=== PATIENT | male | born 1950 | race Caucasian/White ===

== ENCOUNTER → 2018-08-13 | Day surgery (SDC) | payer MEDICARE, BC ==
[~2018-08-13] MED LIST: Propofol 200 MG/20 ML SDV IV ONE
[2018-08-13] MEDS: Lactated Ringers 1,000 ML IV SCH (09:24)
[2018-08-13 11:12] VITALS: BP 125/66
--- NOTE | 2018-08-13 14:34 | OR ---
DATE OF OPERATION: 08/13/2018 PREOPERATIVE DIAGNOSIS: FAMILY HISTORY OF COLON CANCER. POSTOPERATIVE DIAGNOSIS: FAMILY HISTORY OF COLON CANCER. SURGEON: Juni Rodgers MD PROCEDURE: FULL-LENGTH COLONOSCOPY. ANESTHESIA: MAC via CONCRETE ANALYST. COMPLICATIONS: None. SPECIMEN: None. FINDINGS: 1. Full-length colonoscopy. 2. Argueta diverticulosis, mild. RECOMMENDATIONS: Followup colonoscopy in 5 years. INDICATIONS: The patient has a family history of colon cancer. It has been 5 years since his last colonoscopy. Did have one small polyp removed at his last scope. DESCRIPTION OF PROCEDURE: The patient was prepped and draped, placed in the left lateral decubitus position. A lubricated Olympus colonoscope was inserted and easily advanced to the cecum. Direct visualization of the ileocecal valve and appendiceal orifice was accomplished. The bowel prep was adequate. Upon withdrawal of the scope, throughout the entire length of the colon, I could find no signs of any polyps, mass, ulceration, or bleeding sites. No vascular abnormalities or signs of colitis. The patient did have argueta diverticular disease. A few scattered tics in the right colon, but mostly present in the sigmoid, mild in severity. The rectal vault was benign. Retroflexion showed no perianal disease. Air was suctioned, scope removed without complication. GÉNESIS/CLAU /[id number]
== END ==
LOC: CC.SDS 09:04
PROVIDERS: ATTEND Family Medicine
DX: Z12.11 Encounter for screening for malignant neoplasm of colon (principal); K57.30 Diverticulosis of large intestine without perforation or abscess without bleeding; K21.9 Gastro-esophageal reflux disease without esophagitis; I10 Essential (primary) hypertension; E55.9 Vitamin D deficiency, unspecified; E78.5 Hyperlipidemia, unspecified; N40.0 Benign prostatic hyperplasia without lower urinary tract symptoms; M19.90 Unspecified osteoarthritis, unspecified site; Z88.0 Allergy status to penicillin; Z88.1 Allergy status to other antibiotic agents; Z86.010 Personal history of colon polyps; Z80.0 Family history of malignant neoplasm of digestive organs; Z79.899 Other long term (current) drug therapy
CPT/HCPCS: 00812; G0105; J2704; J7120

== ENCOUNTER 2020-05-26 17:52 | Emergency (ER) | payer MEDICARE, BC ==
[2020-05-26] MEDS ORDERED: Alum Hydrox/Mag Hydrox/Simeth 30 ML, Lidocaine 2% 15 ML PO ONE ×4 (18:00→18:03)
--- NOTE | 2020-05-26 18:26 | EDM.PDOC ---
ED HPI GENERAL MEDICAL PROBLEM - General Chief Complaint: General Stated Complaint: gastric reflux, increased BP Time Seen by Provider: 05/26/20 18:10 Source of Information: Reports: Patient History Limitations: Reports: No Limitations - History of Present Illness INITIAL COMMENTS - FREE TEXT/NARRATIVE: Jorge is a 70 year old male who presents to ER with complaints of burning in his chest "like a match on fire". He states the burning then spreads up his chest and down his abdomen. "then gets very anxious". Does have a history of reflux, is currently taking Protonix and Carafate. Had palmer and honey mustard on Thursday and has been suffering since. States today was worse and was worried as his chest was tight. No shortness of breath. No cough, upper respiratory sy mptoms right now. No nausea or vomiting, no abdominal pain "just burning and excess gas". Patient is well known to me, has this concern quite frequently. Onset: Gradual Duration: Day(s):, Getting Worse Location: Reports: Chest, Abdomen Quality: Reports: Ache, Burning Severity: Moderate Associated Symptoms: Denies: Confusion, Chest Pain, Cough, Fever/Chills, Headaches, Loss of Appetite, Nausea/Vomiting, Shortness of Breath Upper Abdomen Pain Score (Numeric/FACES): 4 - Related Data Allergies Allergy/AdvReac Type Severity Reaction Status Date / Time cefuroxime Allergy Cannot Verified 05/26/20 17:54 Remember ciprofloxacin [From Cipro] Allergy Itching Verified 05/26/20 17:54 Penicillins Allergy Seizure Verified 05/26/20 17:54 Home Meds: Home Meds Atenolol/Chlorthalidone [Tenoretic 50] 0.5 each PO DAILY 06/08/13 [History] Calcium Carbonate [Calcium] 600 mg PO DAILY 06/08/13 [History] Cholecalciferol (Vitamin D3) [Vitamin D3] 5,000 unit PO DAILY 06/08/13 [History] Enalapril [Vasotec] 10 mg PO DAILY 06/08/13 [History] Folic Acid 0.8 mg PO DAILY 06/08/13 [History] Potassium Chloride 10 meq PO BID 06/08/13 [History] polyethylene glycoL 3350 [MiraLAX] 17 gm PO DAILY PRN 06/08/13 [History] Magnesium 400 mg PO DAILY 05/08/19 [History] Past Medical History Cardiovascular History: Reports: Hypertension Gastrointestinal History: Reports: GERD - Past Surgical History GI Surgical History: Reports: Cholecystectomy, Juan Fundoplication Social & Family History - Family History Family Medical History: No Pertinent Family History - Tobacco Use Tobacco Use Status *Q: Never Tobacco User Second Hand Smoke Exposure: No - Caffeine Use Caffeine Use: Reports: None - Recreational Drug Use Recreational Drug Use: No ED ROS GENERAL - Review of Systems Review Of Systems: See Below Constitutional: Denies: Fever, Chills, Malaise, Weakness, Fatigue, Decreased Appetite HEENT: Denies: Ear Pain, Sinus Problem, Throat Pain Respiratory: Denies: Shortness of Breath, Cough Cardiovascular: Denies: Chest Pain, Edema, Lightheadedness Endocrine: Denies: Fatigue GI/Abdominal: Reports: Abdominal Pain, Nausea. Denies: Constipation, Diarrhea, Vomiting : Reports: No Symptoms Musculoskeletal: Reports: No Symptoms Skin: Reports: No Symptoms Neurological: Reports: No Symptoms ED EXAM, GENERAL - Physical Exam Exam: See Below Exam Limited By: No Limitations General Appearance: Alert, WD/WN, No Apparent Distress Ears: Normal External Exam, Normal TMs Nose: Normal Inspection, Normal Mucosa, No Blood Throat/Mouth: Normal Inspection, Normal Oropharynx Head: Normocephalic Neck: Normal Inspection, Supple, Non-Tender Respiratory/Chest: No Respiratory Distress, Lungs Clear, Normal Breath Sounds Cardiovascular: Regular Rate, Rhythm GI/Abdominal: Normal Bowel Sounds, Soft, Non-Tender Extremities: Normal Inspection, No Pedal Edema Skin Exam: Warm, Dry Course - Vital Signs Last Recorded V/S: Last Vital Signs Temp 97.5 F 05/26/20 18:21 Pulse 66 05/26/20 18:21 Resp 18 05/26/20 18:21 BP 185/82 H 05/26/20 18:21 Pulse Ox 98 05/26/20 18:21 - Orders/Labs/Meds Orders: Active Orders 24 hr Category Date Time Status Chest 2V [CR] Stat Exams 05/26/20 18:03 Taken INR,PT,PROTHROMBIN TIME [COAG] Stat Lab 05/26/20 18:03 Ordered PTT,PARTIAL THROMBOPLSTIN TIME [COAG] Stat Lab 05/26/20 18:03 Ordered Labs: Laboratory Tests 05/26/20 05/26/20 Range/Units 18:03 18:04 WBC 6.1 (5.0-10.0) 10^3/uL RBC 5.21 (4.50-6.00) 10^6/uL Hgb 17.1 (14.0-18.0) g/dL Hct 48.2 (40.0-54.0) % MCV 92.5 (82.0-94.0) fL MCH 32.8 H (27.0-32.0) pg MCHC 35.5 (33.0-38.0) g/dL RDW Coeff of Maico 12.9 (11.0-15.0) % Plt Count 259 (150-400) 10^3/uL Neut % (Auto) 52.4 (35-85) % Lymph % (Auto) 37.7 (10-55) % [place] % (Auto) 7.1 (0-16) % Eos % (Auto) 2.1 (0-5) % Baso % (Auto) 0.7 (0-3) % Neut # (Auto) 3.18 (1.80-7.00) 10^3/uL Lymph # (Auto) 2.29 (1.00-4.80) 10^3/uL [place] # (Auto) 0.43 (0.00-0.80) 10^3/uL Eos # (Auto) 0.13 (0.00-0.45) 10^3/uL Baso # (Auto) 0.04 10^3/uL Sodium 144 (136-145) mEq/L Potassium 3.4 L (3.5-5.0) mEq/L Chloride 104 (98-106) mEq/L Carbon Dioxide 28 (21-32) mmol/L BUN 22 H (7-18) mg/dL Creatinine 1.3 (0.7-1.3) mg/dL Est Cr Clr Drug Dosing 57.12 mL/min Estimated GFR (MDRD) 55 L (>=60) mL/min Glucose 144 H D (75-99) mg/dL Calcium 9.2 (8.4-10.1) mg/dL Total Bilirubin 1.0 (0.0-1.0) mg/dL AST 14 L (15-37) U/L ALT 29 (12-78) U/L Alkaline Phosphatase 68 (46-116) U/L Lactate Dehydrogenase 138 (100-190) U/L Creatine Kinase 28 L (35-232) U/L Troponin I < 0.017 (0.00-0.06) ng/mL C-Reactive Protein 0.4 (0.2-0.8) mg/dL Total Protein 7.2 (6.4-8.2) g/dL Albumin 3.7 (3.4-5.0) g/dL Lipase 192 (73-393) U/L Meds: Medications Discontinued Medications Generic Name Dose Route Start Last Admin Trade Name Anamika PRN Reason Stop Dose Admin Al Hydroxide/Mg Hydroxide 30 0 ml 05/26/20 18:03 05/26/20 18:20 ml/ Lidocaine HCl 15 ml PO 05/26/20 18:04 45 ml ONETIME ONE Administration Al Hydroxide/Mg Hydroxide 30 0 ml 05/26/20 18:00 05/26/20 18:21 ml/ Lidocaine HCl 15 ml PO 05/26/20 18:01 Not Given ONETIME ONE - Re-Assessments/Exams Free Text/Narrative Re-Assessment/Exam: 05/26/20 19:01 Labs are all normal. Is feeling better after GI cocktail. Advised to use Maalox at times if needed for the reflux/burning. Blood pressure now improved as well. Departure - Departure Time of Disposition: 19:04 Disposition: Home, Self-Care 01 Condition: Good Clinical Impression: GERD (gastroesophageal reflux disease) - Discharge Information *PRESCRIPTION DRUG MONITORING PROGRAM REVIEWED*: No *COPY OF PRESCRIPTION DRUG MONITORING REPORT IN PATIENT MELLY: No Instructions: Food Choices for Gastroesophageal Reflux Disease, Adult Forms: ED Department Discharge Additional Instructions: 1. Rest 2. Push fluids 3. Woodruff diet 4. Maalox as needed when feels more burning/heartburn 5. Follow up if any concerns. Sepsis Event Note (ED) - Evaluation Sepsis Screening Result: No Definite Risk - Focused Exam Vital Signs: Vital Signs Temp Pulse Resp BP Pulse Ox 05/26/20 18:21 97.5 F 66 18 185/82 H 98 - My Orders Last 24 Hours: My Active Orders 05/26/20 18:03 Chest 2V [CR] Stat INR,PT,PROTHROMBIN TIME [COAG] Stat PTT,PARTIAL THROMBOPLSTIN TIME [COAG] Stat - Assessment/Plan Last 24 Hours: My Active Orders 05/26/20 18:03 Chest 2V [CR] Stat INR,PT,PROTHROMBIN TIME [COAG] Stat PTT,PARTIAL THROMBOPLSTIN TIME [COAG] Stat
[2020-05-26 18:36] LABS: CHLORIDE,CL 104 mEq/L (98-106); SODIUM,NA 144 mEq/L (136-145)
[2020-05-26 18:42] LABS: PTT,PARTIAL THROMBOPLSTIN TIME 25.2 SEC (23.2-32.3)
[2020-05-26 19:04] VITALS: BP 148/77; PULSE 77
== END 2020-05-26 19:09 | disposition home or self-care (01) ==
LOC: CC.ED 17:52
DX: K21.9 Gastro-esophageal reflux disease without esophagitis (principal); I10 Essential (primary) hypertension; Z88.1 Allergy status to other antibiotic agents; Z88.0 Allergy status to penicillin; Z79.899 Other long term (current) drug therapy
CPT/HCPCS: 36415; 71046; 80053; 82550; 83615; 83690; 84484; 85025; 85610; 85730; 86140; 93005; 93010; 99283; 99284-25; A9270-GY

== ENCOUNTER 2020-06-24 22:45 | Emergency (ER) | payer MEDICARE, BC ==
[2020-06-24] MEDS ORDERED: Ondansetron 4 MG/2 ML SDV IVPUSH STA (23:10)
[2020-06-24] MEDS ORDERED: Sodium Chloride 0.9% 1,000 ML IV ONE (23:10)
--- NOTE | 2020-06-24 23:12 | EDM.PDOC ---
ED HPI GENERAL MEDICAL PROBLEM - General Chief Complaint: General Stated Complaint: "I've been vomitting and dizzy" Time Seen by Provider: 06/24/20 23:07 Source of Information: Reports: Patient History Limitations: Reports: No Limitations - History of Present Illness INITIAL COMMENTS - FREE TEXT/NARRATIVE: Patient is a 70 year old male that presents to the ER. Patient reports this afternoon after congregational he started having some dizzy sensation. He reports that when he would sit up or get to walk that he felt dizzy. Patient reports that this evening he started with abdominal "gurgling", nausea, vomiting, and diarrhea. Patient reports he vomited x1. Patient reports after vomiting he does feel better, but stomach is still a little upset and still feels dizzy. Patient able to drive himself to the ER. Patient denies fever, chest pain, shortness of breath, runny nose, congestion, drainage, cough, rashes, edema. Onset: Today Onset Date: 06/24/20 Onset Time: 14:00 Location: Reports: Abdomen Severity: Mild Improves with: Reports: None Worsens with: Reports: None Associated Symptoms: Reports: Loss of Appetite, Nausea/Vomiting. Denies: Confusion, Chest Pain, Cough, cough w sputum, Diaphoresis, Fever/Chills, Headaches, Malaise, Rash, Seizure, Shortness of Breath, Syncope, Weakness - Related Data Allergies Allergy/AdvReac Type Severity Reaction Status Date / Time cefuroxime Allergy Cannot Verified 06/24/20 22:48 Remember ciprofloxacin [From Cipro] Allergy Itching Verified 06/24/20 22:48 Penicillins Allergy Seizure Verified 06/24/20 22:48 Home Meds: Home Meds Atenolol/Chlorthalidone [Tenoretic 50] 0.5 each PO DAILY 06/08/13 [History] Calcium Carbonate [Calcium] 600 mg PO DAILY 06/08/13 [History] Cholecalciferol (Vitamin D3) [Vitamin D3] 5,000 unit PO DAILY 06/08/13 [History] Enalapril [Vasotec] 10 mg PO DAILY 06/08/13 [History] Folic Acid 0.8 mg PO DAILY 06/08/13 [History] Potassium Chloride 10 meq PO BID 06/08/13 [History] polyethylene glycoL 3350 [MiraLAX] 17 gm PO DAILY PRN 06/08/13 [History] Magnesium 400 mg PO DAILY 08/11/18 [History] Past Medical History HEENT History: Reports: None Cardiovascular History: Reports: Hypertension Gastrointestinal History: Reports: GERD, Hiatal Hernia Musculoskeletal History: Reports: Other (See Below) - Past Surgical History HEENT Surgical History: Reports: None Cardiovascular Surgical History: Reports: None GI Surgical History: Reports: Cholecystectomy, Juan Fundoplication Musculoskeletal Surgical History: Reports: None Social & Family History - Family History Family Medical History: No Pertinent Family History - Tobacco Use Tobacco Use Status *Q: Never Tobacco User Second Hand Smoke Exposure: No - Caffeine Use Caffeine Use: Reports: None - Recreational Drug Use Recreational Drug Use: No ED ROS GENERAL - Review of Systems Review Of Systems: See Below Constitutional: Reports: No Symptoms HEENT: Reports: No Symptoms Respiratory: Reports: No Symptoms Cardiovascular: Reports: Lightheadedness. Denies: Chest Pain, Dyspnea on Exertion, Edema, Palpitations Endocrine: Reports: No Symptoms GI/Abdominal: Reports: Diarrhea, Decreased Appetite, Nausea, Vomiting. Denies: Abdominal Pain (not pain, he reports "gurgling") : Reports: No Symptoms Musculoskeletal: Reports: No Symptoms Skin: Reports: No Symptoms Neurological: Reports: No Symptoms Psychiatric: Reports: No Symptoms Hematologic/Lymphatic: Reports: No Symptoms Immunologic: Reports: No Symptoms ED EXAM, GENERAL - Physical Exam Exam: See Below Exam Limited By: No Limitations General Appearance: Alert, WD/WN, No Apparent Distress Eye Exam: Bilateral Eye: Normal Inspection, PERRL Ears: Normal External Exam, Normal Canal, Hearing Grossly Normal, Normal TMs Ear Exam: Bilateral Ear: Auricle Normal, Canal Normal, TM normal Nose: Normal Inspection, Normal Mucosa, No Blood Throat/Mouth: Normal Inspection, Normal Lips, Normal Teeth, Normal Gums, Normal Oropharynx, Normal Voice, No Airway Compromise Head: Atraumatic, Normocephalic Neck: Normal Inspection, Supple, Non-Tender, Full Range of Motion Respiratory/Chest: No Respiratory Distress, Lungs Clear, Normal Breath Sounds, No Accessory Muscle Use Cardiovascular: Normal Peripheral Pulses, Regular Rate, Rhythm, No Edema, No Gallop, No JVD, No Murmur, No Rub Peripheral Pulses: 2+: Radial (L), Radial (R), Posterior Tibial (L), Posterior Tibial (R) GI/Abdominal: Normal Bowel Sounds, Soft, Non-Tender, No Organomegaly, No Distention, No Abnormal Bruit, No Mass, Pelvis Stable (Male) Exam: Deferred Rectal (Males) Exam: Deferred Back Exam: Normal Inspection, Full Range of Motion. No: CVA Tenderness (L), CVA Tenderness (R) Extremities: Normal Inspection, Normal Range of Motion, Non-Tender, No Pedal Edema, Normal Capillary Refill Neurological: Alert, Oriented, Normal Cognition, Normal Gait, No Motor/Sensory Deficits Psychiatric: Normal Affect, Normal Mood Skin Exam: Warm, Dry, Intact, Normal Color, No Rash Lymphatic: No Adenopathy #1 Interpretation EKG Date: 06/24/20 Time: 23:32 Rhythm: NSR Rate (Beats/Min): 64 Mcloud: Normal P-Wave: Present QRS: Normal ST-T: Normal QT: Normal Comparison: No Change (05/26/20) Course - Vital Signs Last Recorded V/S: Last Vital Signs Temp 98.2 F 06/24/20 23:14 Pulse 62 06/24/20 23:14 Resp 20 06/24/20 23:14 BP 159/79 H 06/24/20 23:14 Pulse Ox 99 06/24/20 23:14 - Orders/Labs/Meds Orders: Active Orders 24 hr Category Date Time Status EKG Documentation Completion [RC] STAT Care 06/24/20 23:13 Active Sodium Chloride 0.9% [Normal Saline] 1,000 ml Med 06/24/20 23:10 Active IV .BOLUS Medication Orders Sodium Chloride (Normal Saline) 1,000 mls @ 1,000 mls/hr IV .BOLUS ONE Stop: 06/25/20 00:09 Last Admin: 06/24/20 23:44 Dose: 1,000 mls/hr Documented by: SANDRA Labs: Laboratory Tests 06/24/20 06/24/20 06/24/20 Range/Units 23:10 23:16 23:16 WBC 9.9 (5.0-10.0) 10^3/uL RBC 5.42 (4.50-6.00) 10^6/uL Hgb 17.6 (14.0-18.0) g/dL Hct 49.5 (40.0-54.0) % MCV 91.3 (82.0-94.0) fL MCH 32.5 H (27.0-32.0) pg MCHC 35.6 (33.0-38.0) g/dL RDW Coeff of Maico 13.1 (11.0-15.0) % Plt Count 280 (150-400) 10^3/uL Neut % (Auto) 73.4 (35-85) % Lymph % (Auto) 17.2 (10-55) % [place] % (Auto) 7.4 (0-16) % Eos % (Auto) 1.6 (0-5) % Baso % (Auto) 0.4 (0-3) % Neut # (Auto) 7.27 H (1.80-7.00) 10^3/uL Lymph # (Auto) 1.70 (1.00-4.80) 10^3/uL Barron # (Auto) 0.73 (0.00-0.80) 10^3/uL Eos # (Auto) 0.16 (0.00-0.45) 10^3/uL Baso # (Auto) 0.04 10^3/uL Sodium 143 (136-145) mEq/L Potassium 4.0 (3.5-5.0) mEq/L Chloride 101 (98-106) mEq/L Carbon Dioxide 31 (21-32) mmol/L BUN 15 (7-18) mg/dL Creatinine 1.2 (0.7-1.3) mg/dL Est Cr Clr Drug Dosing TNP Estimated GFR (MDRD) > 60 (>=60) mL/min Glucose 131 H D (75-99) mg/dL Lactic Acid (0.4-2.0) mmol/L Calcium 9.9 (8.4-10.1) mg/dL Total Bilirubin 1.0 (0.0-1.0) mg/dL AST 23 (15-37) U/L ALT 44 (12-78) U/L Alkaline Phosphatase 78 (46-116) U/L Lactate Dehydrogenase 177 (100-190) U/L Creatine Kinase 47 (35-232) U/L Troponin I < 0.017 (0.00-0.06) ng/mL Total Protein 7.9 (6.4-8.2) g/dL Albumin 4.0 (3.4-5.0) g/dL Amylase 76 (25-115) U/L Lipase 133 (73-393) U/L Urine Color (YELLOW) Urine Appearance (CLEAR) Urine pH (4.5-8.0) Ur Specific [place] (1.003-1.020) Urine Protein (NEGATIVE) mg/dL Urine Glucose (UA) (NEGATIVE) mg/dL Urine Ketones (NEGATIVE) mg/dL Urine Occult Blood (NEGATIVE) Urine Nitrite (NEGATIVE) Urine Bilirubin (NEGATIVE) Urine Urobilinogen (0.2-1.0) EU/dL Ur Leukocyte Esterase (NEGATIVE) Urine RBC (0-5) /HPF Urine WBC (0-5) /HPF Urine Mucus (NOT SEEN) /HPF Influenza Type A RNA Negative (NEGATIVE) Influenza Type B RNA Negative (NEGATIVE) SARS-CoV-2 RNA (FREDA) Negative (NEGATIVE) 06/24/20 06/24/20 Range/Units 23:16 23:21 WBC (5.0-10.0) 10^3/uL RBC (4.50-6.00) 10^6/uL Hgb (14.0-18.0) g/dL Hct (40.0-54.0) % MCV (82.0-94.0) fL MCH (27.0-32.0) pg MCHC (33.0-38.0) g/dL RDW Coeff of [place] (11.0-15.0) % Plt Count (150-400) 10^3/uL Neut % (Auto) (35-85) % Lymph % (Auto) (10-55) % Barron % (Auto) (0-16) % Eos % (Auto) (0-5) % Baso % (Auto) (0-3) % Neut # (Auto) (1.80-7.00) 10^3/uL Lymph # (Auto) (1.00-4.80) 10^3/uL Barron # (Auto) (0.00-0.80) 10^3/uL Eos # (Auto) (0.00-0.45) 10^3/uL Baso # (Auto) 10^3/uL Sodium (136-145) mEq/L Potassium (3.5-5.0) mEq/L Chloride (98-106) mEq/L Carbon Dioxide (21-32) mmol/L BUN (7-18) mg/dL Creatinine (0.7-1.3) mg/dL Est Cr Clr Drug Dosing Estimated GFR (MDRD) (>=60) mL/min Glucose (75-99) mg/dL Lactic Acid 2.3 H (0.4-2.0) mmol/L Calcium (8.4-10.1) mg/dL Total Bilirubin (0.0-1.0) mg/dL AST (15-37) U/L ALT (12-78) U/L Alkaline Phosphatase (46-116) U/L Lactate Dehydrogenase (100-190) U/L Creatine Kinase (35-232) U/L Troponin I (0.00-0.06) ng/mL Total Protein (6.4-8.2) g/dL Albumin (3.4-5.0) g/dL Amylase (25-115) U/L Lipase (73-393) U/L Urine Color Dark yellow (YELLOW) Urine Appearance Clear (CLEAR) Urine pH 7.0 (4.5-8.0) Ur Specific [place] 1.025 H (1.003-1.020) Urine Protein Trace H (NEGATIVE) mg/dL Urine Glucose (UA) Negative (NEGATIVE) mg/dL Urine Ketones Negative (NEGATIVE) mg/dL Urine Occult Blood Negative (NEGATIVE) Urine Nitrite Negative (NEGATIVE) Urine Bilirubin Negative (NEGATIVE) Urine Urobilinogen 0.2 (0.2-1.0) EU/dL Ur Leukocyte Esterase Trace H (NEGATIVE) Urine RBC 0-5 (0-5) /HPF Urine WBC 5-10 H (0-5) /HPF Urine Mucus Few H (NOT SEEN) /HPF Influenza Type A RNA (NEGATIVE) Influenza Type B RNA (NEGATIVE) SARS-CoV-2 RNA (FREDA) (NEGATIVE) Meds: Medications Generic Name Dose Route Start Last Admin Trade Name Freq PRN Reason Stop Dose Admin Sodium Chloride 1,000 mls @ 1,000 mls/hr 06/24/20 23:10 06/24/20 23:44 Normal Saline IV 06/25/20 00:09 1,000 mls/hr .BOLUS ONE Administration Discontinued Medications Generic Name Dose Route Start Last Admin Trade Name Freq PRN Reason Stop Dose Admin Ondansetron HCl 4 mg 06/24/20 23:10 06/24/20 23:44 Ondansetron 4 Mg/2 Ml Sdv IVPUSH 06/24/20 23:11 4 mg NOW STA Administration Ondansetron HCl 2 packet 06/24/20 23:43 06/25/20 00:01 Take Home: Ondansetron 4 Mg Tab.Dis, 2 Tab Pack PO 06/24/20 23:44 2 packet ONETIME ONE Administration - Re-Assessments/Exams Free Text/Narrative Re-Assessment/Exam: 06/24/20 23:59 Patient has not vomited in the ER. Patient also reports he has had dizziness for several weeks and even saw his PCP for this complaint and got an MRI a couple of weeks ago for it. Labs reviewed, unremarkable. Lactic mildly elevated, but vitals are not septic appearing. He is also not septic/toxic appearing. Will discharge patient home. Patient reports he is feeling fine. Departure - Departure Time of Disposition: 00:09 Disposition: Home, Self-Care 01 Condition: Fair Clinical Impression: Viral enteritis - Discharge Information *PRESCRIPTION DRUG MONITORING PROGRAM REVIEWED*: Not Applicable *COPY OF PRESCRIPTION DRUG MONITORING REPORT IN PATIENT MELLY: Not Applicable Instructions: Viral Gastroenteritis, Adult, [id number] Forms: ED Department Discharge Additional Instructions: Followup with your primary care provider Return to the ER for worsening of condition or any emergent concerns Increase fluid intake Zofran 4mg 1 pill under the tongue as needed for nausea or vomiting #4 no refill take home Sepsis Event Note (ED) - Focused Exam Vital Signs: Vital Signs Temp Pulse Resp BP Pulse Ox 06/24/20 23:14 98.2 F 62 20 159/79 H 99 - My Orders Last 24 Hours: My Active Orders 06/24/20 23:10 Sodium Chloride 0.9% [Normal Saline] 1,000 ml IV .BOLUS 06/24/20 23:13 EKG Documentation Completion [RC] STAT - Assessment/Plan Last 24 Hours: My Active Orders 06/24/20 23:10 Sodium Chloride 0.9% [Normal Saline] 1,000 ml IV .BOLUS 06/24/20 23:13 EKG Documentation Completion [RC] STAT Plan: PLEASE SEE RN NOTE FOR PFSH
[2020-06-24 23:15] VITALS: BP 159/79; PULSE 62
[2020-06-24 23:39] LABS: CHLORIDE,CL 101 mEq/L (98-106); SODIUM,NA 143 mEq/L (136-145)
[2020-06-24] MEDS ORDERED: Take Home: Ondansetron 4 MG Tab.DIS, 2 Tab Pack PO ONE (23:43)
[2020-06-25 00:04] LABS: CORONAVIRUS COVID-19 NAA NEGATIVE (NEGATIVE)
== END 2020-06-25 00:30 | disposition home or self-care (01) ==
LOC: CC.ED 22:45
DX: A08.4 Viral intestinal infection, unspecified (principal); R42 Dizziness and giddiness; I10 Essential (primary) hypertension; Z88.1 Allergy status to other antibiotic agents; Z88.0 Allergy status to penicillin; Z79.899 Other long term (current) drug therapy; Z20.822 Contact with and (suspected) exposure to COVID-19; Z20.828 Contact with and (suspected) exposure to other viral communicable diseases
CPT/HCPCS: 0240U; 36415; 80053; 81001; 82150; 82550; 83605; 83615; 83690; 84484; 85025; 93005; 93010; 96374; 99284; 99284-25; A9270-GY; J2405; J7030

== ENCOUNTER → 2020-12-07 | Day surgery (SDC) | payer MEDICARE, BC ==
[~2020-12-07] MED LIST changes: +Ketamine 200 MG/20 ML MDV ONE; +Lactated Ringers 1,000 ML IV SCH; +Naloxone 2 MG/2 ML Syringe ONE; -Propofol 200 MG/20 ML SDV IV ONE; +Propofol 200 MG/20 ML SDV ONE; +fentaNYL 100 MCG/2 ML SDV ONE
[2020-12-07 11:05] VITALS: BP 152/79; PULSE 50
--- NOTE | 2020-12-11 11:36 | OR ---
DATE OF OPERATION: 12/07/2020 PREOPERATIVE DIAGNOSIS: DYSPHAGIA. POSTOPERATIVE DIAGNOSIS: DYSPHAGIA. SURGEON: Juni Rodgers MD PROCEDURE: DIAGNOSTIC ESOPHAGOGASTRODUODENOSCOPY WITH POLYP REMOVAL X2, MARCUS. ANESTHESIA: MAC. COMPLICATIONS: None. SPECIMEN: 1. Antral MARCUS. 2. Adenomatous polyps, fundus, x2. FINDINGS: 1. Full-length diagnostic EGD. 2. Intact lap Juan. 3. Spontaneous GERD, minimal. 4. Adenomatous polyps, fundus. RECOMMENDATIONS: Ongoing medical followup. INDICATIONS: The patient has a history of hiatal hernia repair. He has been having some occasional dysphagia over the last 3 or 4 days where he feels like food wants to get stuck or move slowly at the bottom of the sternal area. We elected to proceed with a diagnostic EGD. DESCRIPTION OF PROCEDURE: The patient was prepped and draped, placed in the left lateral decubitus position. A lubricated Olympus gastroscope was inserted over a bit and advanced to cricopharyngeus area and easily intubated into the esophagus. The esophageal lining appeared benign in its entire course. The Z- line was crisp and sharp at 40 cm. There were no signs of a recurrent hernia. There were no signs of any distal stricturing, ulceration, or Vigil's changes. There was a little bit of spontaneous reflux, but minimal, and no associated esophagitis. The scope was easily advanced into the stomach, through the pylorus, and into the second portion of the duodenum. This and the duodenal bulb appeared completely benign. The scope was brought back into the stomach and retroflexed. The upper fundus and cardia appeared unremarkable. There were no signs of peptic ulcer disease, mass, or otherwise. Upon straightening, there were a few adenomatous polyps in the mid distal fundus, and we removed two for verification. The antrum showed no gastritis. We did do a CLOtest. Air was then suctioned and scope removed without complication. GÉNESIS/CLAU /[id number]
== END ==
LOC: CC.SDS 08:51
PROVIDERS: ATTEND Family Medicine
DX: K31.7 Polyp of stomach and duodenum (principal); K21.9 Gastro-esophageal reflux disease without esophagitis; R13.10 Dysphagia, unspecified; E78.5 Hyperlipidemia, unspecified; I10 Essential (primary) hypertension; E55.9 Vitamin D deficiency, unspecified; E87.6 Hypokalemia; Z88.0 Allergy status to penicillin; Z98.890 Other specified postprocedural states; Z87.19 Personal history of other diseases of the digestive system; Z88.8 Allergy status to other drugs, medicaments and biological substances; Z79.899 Other long term (current) drug therapy
CPT/HCPCS: 00731; 43239; 87081; 88305; J2310; J2704; J3010

== ENCOUNTER 2021-03-21 21:51 | Emergency (ER) | payer MEDICARE, BC ==
[2021-03-21 21:57] VITALS: PULSE 97
[2021-03-21 22:19] VITALS: BP 171/93
[2021-03-21 22:22] LABS: CHLORIDE,CL 101 mEq/L (98-106); SODIUM,NA 142 mEq/L (136-145)
--- NOTE | 2021-03-21 22:39 | EDM.PDOC ---
ED HPI GENERAL MEDICAL PROBLEM - General Chief Complaint: General Stated Complaint: high blood pressure Time Seen by Provider: 03/21/21 21:55 Source of Information: Reports: Patient, RN History Limitations: Reports: No Limitations - History of Present Illness INITIAL COMMENTS - FREE TEXT/NARRATIVE: States that he has had increase in gas and pressure in abdomen and that causes h is blood pressure to go up and then he worries about it and he was afraid he was having chest pain and then came to the ER. When getting here he states that his abdomen feels better and that he belched and the pain improved. THe pain that was going up into his belly has improved. No nausea or vomiting and the pressure across chest is also relieved. Onset: Gradual Location: Reports: Chest, Abdomen Quality: Reports: Ache, Pressure Associated Symptoms: Denies: Nausea/Vomiting, Shortness of Breath Treatments HAND BOOKBINDER: Reports: Other Medication(s) Other Treatments HAND BOOKBINDER: Patient states he took an extra blood pressure pill. - Related Data Allergies Allergy/AdvReac Type Severity Reaction Status Date / Time cefuroxime Allergy Cannot Verified 03/21/21 21:57 Remember ciprofloxacin [From Cipro] Allergy Itching Verified 03/21/21 21:57 Penicillins Allergy Seizure Verified 03/21/21 21:57 Home Meds: Home Meds Cholecalciferol (Vitamin D3) [Vitamin D3] 5,000 unit PO DAILY 06/08/13 [History] Folic Acid 0.8 mg PO DAILY 06/08/13 [History] Potassium Chloride 20 meq PO BID 06/08/13 [History] Magnesium 400 mg PO DAILY 08/11/18 [History] Atenolol/Chlorthalidone [Atenolol-Chlorthalidone 50-25] 1 tab PO DAILY 12/06/20 [History] Cetirizine [ZyrTEC] 10 mg PO DAILY 12/06/20 [History] Meclizine HCl 25 mg PO Q8H PRN 12/06/20 [History] Pantoprazole Sodium [Protonix] 40 mg PO DAILY 12/06/20 [History] Past Medical History HEENT History: Reports: None Cardiovascular History: Reports: Hypertension Gastrointestinal History: Reports: GERD, Hiatal Hernia Musculoskeletal History: Reports: Other (See Below) - Past Surgical History HEENT Surgical History: Reports: None Cardiovascular Surgical History: Reports: None GI Surgical History: Reports: Cholecystectomy, Juan Fundoplication Musculoskeletal Surgical History: Reports: None Social & Family History - Family History Family Medical History: No Pertinent Family History - Tobacco Use Tobacco Use Status *Q: Never Tobacco User - Caffeine Use Caffeine Use: Reports: None ED ROS GENERAL - Review of Systems Review Of Systems: See Below Constitutional: Denies: Fever, Chills, Weakness Respiratory: Reports: No Symptoms Cardiovascular: Reports: Chest Pain, Blood Pressure Problem. Denies: Edema GI/Abdominal: Reports: Abdominal Pain, Flatus. Denies: Constipation, Diarrhea, Nausea : Reports: No Symptoms ED EXAM, GENERAL - Physical Exam Exam: See Below Exam Limited By: No Limitations General Appearance: Alert, WD/WN, No Apparent Distress Throat/Mouth: Normal Inspection, Normal Oropharynx Head: Atraumatic, Normocephalic Neck: Normal Inspection, Supple, Non-Tender Respiratory/Chest: No Respiratory Distress, Lungs Clear, Normal Breath Sounds, Chest Non-Tender Cardiovascular: Regular Rate, Rhythm, No Edema GI/Abdominal: Normal Bowel Sounds, Soft, Non-Tender Extremities: Normal Inspection, No Pedal Edema, Normal Capillary Refill Neurological: Alert, Oriented Skin Exam: Warm, Dry, Intact Course - Vital Signs Last Recorded V/S: Last Vital Signs Temp 95.6 F L 03/21/21 21:52 Pulse 97 03/21/21 21:52 Resp 16 03/21/21 21:52 BP 171/93 H 03/21/21 22:19 Pulse Ox 97 03/21/21 21:52 - Orders/Labs/Meds Orders: Active Orders 24 hr Category Date Time Status Chest 2V [CR] Stat Exams 03/21/21 21:55 Stop Req EKG 12 Lead [EK] Stat Ther 03/21/21 21:55 Ordered Labs: Laboratory Tests 03/21/21 03/21/21 Range/Units 22:05 22:05 WBC 6.9 (4.0-11.0) 10^3/uL RBC 5.08 (4.50-6.00) x10^6/uL Hgb 16.8 (14.0-18.0) g/dL Hct 46.0 (42.0-52.0) % MCV 90.6 (83.0-97.0) fL MCH 33.1 H (27.0-32.0) pg MCHC 36.5 H (32.0-36.0) g/dL RDW Coeff of [place] 12.0 (11.0-15.0) % Plt Count 316 (150-400) 10^3/uL Immature Gran % (Auto) 0.0 (0.0-4.9) % Neut % (Auto) 33.9 L (41-71) % Lymph % (Auto) 51.1 H (24-44) % [place] % (Auto) 9.1 (0-10) % Eos % (Auto) 4.6 (0-6) % Baso % (Auto) 1.3 H (0-1) % Neut # (Auto) 2.33 (1.80-8.00) x10^3/uL Lymph # (Auto) 3.52 (0.60-5.00) 10^3/uL [place] # (Auto) 0.63 (0.00-1.50) 10^3/uL Eos # (Auto) 0.32 (0.00-1.50) 10^3/uL Baso # (Auto) 0.09 (0.00-0.50) 10^3/uL Immature Gran # (Auto) 0.00 (0.00-0.49) 10^3/uL Sodium 142 (136-145) mEq/L Potassium 3.1 L D (3.5-5.0) mEq/L Chloride 101 (98-106) mEq/L Carbon Dioxide 32 (21-32) mmol/L BUN 14 (7-18) mg/dL Creatinine 1.4 H (0.7-1.3) mg/dL Est Cr Clr Drug Dosing 52.29 mL/min Estimated GFR (MDRD) 50 L (>=60) mL/min Glucose 121 H (75-99) mg/dL Calcium 9.2 (8.4-10.1) mg/dL Magnesium 2.2 (1.8-2.4) mg/dL Total Bilirubin 0.7 (0.0-1.0) mg/dL AST 25 (15-37) U/L ALT 46 (12-78) U/L Alkaline Phosphatase 73 (46-116) U/L Troponin I High Sens 10.7 (<=76) pg/mL C-Reactive Protein < 0.2 L (0.2-0.8) mg/dL Total Protein 7.9 (6.4-8.2) g/dL Albumin 4.0 (3.4-5.0) g/dL Lipase 174 (73-393) U/L - Re-Assessments/Exams Free Text/Narrative Re-Assessment/Exam: 03/21/212224 Pain in abdomen subsided when he belched and passed gas. That also relieved the pressure that he was having up into his chest. His BP also came down when he was relieved of the above symptoms. He feels that he is back to his baseline. He admits that now that he lives by himself when he doesn't feel well he gets really nervous and is worried he will be sick by himself. His BP did slowly decrease while visiting. Departure - Departure Time of Disposition: 22:37 Disposition: Home, Self-Care 01 Condition: Good Clinical Impression: GERD (gastroesophageal reflux disease) Qualifiers: Esophagitis presence: esophagitis presence not specified Qualified Code(s): K21.9 - Gastro-esophageal reflux disease without esophagitis - Discharge Information *PRESCRIPTION DRUG MONITORING PROGRAM REVIEWED*: Not Applicable *COPY OF PRESCRIPTION DRUG MONITORING REPORT IN PATIENT MELLY: Not Applicable Referrals: PCP,None [Primary Care Provider] - Forms: ED Department Discharge Additional Instructions: When you have increase in acid and gas in your stomach take GAVISCON or other antacid when it first starts to try to prevent it from getting so bad. continue on your current meds keep appt with Vanessa tomorrow as scheduled to recheck your blood pressure. call if any questions Sepsis Event Note (ED) - Evaluation Sepsis Screening Result: No Definite Risk - Focused Exam Vital Signs: Vital Signs Temp Pulse Resp BP Pulse Ox 03/21/21 22:19 171/93 H 03/21/21 21:52 95.6 F L 97 16 204/107 H 97 - Problem List & Annotations (1) GERD (gastroesophageal reflux disease) SNOMED Code(s): 244284157 Code(s): K21.9 - GASTRO-ESOPHAGEAL REFLUX DISEASE WITHOUT ESOPHAGITIS Status: Acute Qualifiers: Esophagitis presence: esophagitis presence not specified Qualified Code(s): K21.9 - Gastro-esophageal reflux disease without esophagitis - Problem List Review Problem List Initiated/Reviewed/Updated: Yes - My Orders Last 24 Hours: My Active Orders 03/21/21 21:55 Chest 2V [CR] Stat EKG 12 Lead [EK] Stat - Assessment/Plan Last 24 Hours: My Active Orders 03/21/21 21:55 Chest 2V [CR] Stat EKG 12 Lead [EK] Stat
== END 2021-03-21 22:44 | disposition home or self-care (01) ==
LOC: CC.ED 21:51
DX: K21.9 Gastro-esophageal reflux disease without esophagitis (principal); I10 Essential (primary) hypertension; Z79.899 Other long term (current) drug therapy; Z88.1 Allergy status to other antibiotic agents; Z88.0 Allergy status to penicillin
CPT/HCPCS: 36415; 80053; 83690; 83735; 84484; 85025; 86140; 99284

== ENCOUNTER → 2021-04-18 | Day surgery (SDC) | payer MEDICARE, BC ==
[~2021-04-18] MED LIST changes: +Bacitracin Oint 28.35 GM Tube ONE; -Ketamine 200 MG/20 ML MDV ONE; -Lactated Ringers 1,000 ML IV SCH; -Naloxone 2 MG/2 ML Syringe ONE; -Propofol 200 MG/20 ML SDV ONE; -fentaNYL 100 MCG/2 ML SDV ONE
[2021-04-18] MEDS: Lactated Ringers 1,000 ML IV SCH (08:37)
[2021-04-18] MEDS: Lidocaine 1% with EPINEPHrine 1:100,000 20 ML MDV INJECT ONE (09:19)
[2021-04-18] MEDS: Bacitracin/Neomycin/Polymyxin B Oint 0.9 GM U/D Packet TOP ONE (09:33)
[2021-04-18 10:51] VITALS: BP 143/85; PULSE 53
== END ==
LOC: CC.SDS 07:54
PROVIDERS: ATTEND Surgery
DX: L82.1 Other seborrheic keratosis (principal); F41.9 Anxiety disorder, unspecified; K21.9 Gastro-esophageal reflux disease without esophagitis; E78.5 Hyperlipidemia, unspecified; I10 Essential (primary) hypertension; E55.9 Vitamin D deficiency, unspecified; Z88.0 Allergy status to penicillin; Z88.8 Allergy status to other drugs, medicaments and biological substances; Z79.899 Other long term (current) drug therapy; Z98.890 Other specified postprocedural states
CPT/HCPCS: A9270-GY; J7120

== ENCOUNTER 2022-12-06 18:36 | Emergency (ER) | payer MEDICARE, BC ==
[2022-12-06] MEDS ORDERED: Aluminum Hydroxide/Magnesium Hydroxide/Simethicone Susp 30 ML Cup PO ONE (18:45)
[2022-12-06 19:04] LABS: BASOPHILS ABSOLUTE AUTO 0.05 10^3/uL (0.00-0.50); BASOPHILS PERCENT AUTO 0.9 % (0-1); EOSINOPHILS ABSOLUTE AUTO 0.14 10^3/uL (0.00-1.50); EOSINOPHILS PERCENT AUTO 2.6 % (0-6); HEMATOCRIT 45.4 % (42.0-52.0); HEMOGLOBIN 16.2 g/dL (14.0-18.0); LYMPHOCYTES ABSOLUTE AUTO 2.18 10^3/uL (0.60-5.00); LYMPHOCYTES PERCENT AUTO 40.4 % (24-44); MEAN CORPUSCULAR HEMOGLOBIN 32.9 pg (27.0-32.0); MEAN CORPUSCULAR HGB CONC 35.7 g/dL (32.0-36.0); MEAN CORPUSCULAR VOLUME 92.3 fL (83.0-97.0); MONOCYTES ABSOLUTE AUTO 0.27 10^3/uL (0.00-1.50); NEUTROPHILS ABSOLUTE AUTO 2.76 x10^3/uL (1.80-8.00); NEUTROPHILS PERCENT AUTO 51.1 % (41-71); PLATELET COUNT,PLT 213 10^3/uL (150-400); RED BLOOD CELL COUNT 4.92 x10^6/uL (4.50-6.00); WHITE BLOOD CELL COUNT,WBC 5.4 10^3/uL (4.0-11.0)
[2022-12-06 19:15] LABS: INR 1.08 (0.92-1.18); PROTHROMBIN TIME 11.1 SEC (9.3-11.3); PTT,PARTIAL THROMBOPLSTIN TIME 25.8 SEC (20.0-30.0)
[2022-12-06 19:20] LABS: ALBUMIN 3.9 g/dL (3.4-5.0); CALCIUM 8.9 mg/dL (8.4-10.1); CREATININE 1.1 mg/dL (0.7-1.3); EST CRCL DRUG DOSING (CG) 65.6 mL/min; MAGNESIUM 1.9 mg/dL (1.8-2.4); POTASSIUM,K 3.7 mEq/L (3.5-5.0); PROTEIN TOTAL,TP 7.5 g/dL (6.4-8.2)
[2022-12-06] MEDS ORDERED: ALPRAZolam 0.25 MG Tab PO ONE (19:44)
[2022-12-06 21:13] VITALS: BP 180/97; PULSE 87
== END 2022-12-06 20:40 | disposition home or self-care (01) ==
LOC: CC.ED 18:36
DX: K21.9 Gastro-esophageal reflux disease without esophagitis (principal); I10 Essential (primary) hypertension; Z88.0 Allergy status to penicillin; Z88.1 Allergy status to other antibiotic agents; Z79.899 Other long term (current) drug therapy
CPT/HCPCS: 36415; 80053; 83690; 83735; 84484; 85025; 85610; 85730; 99284; A9270-GY

== ENCOUNTER 2022-12-10 09:45 | Emergency (ER) | payer MEDICARE, BC ==
[2022-12-10 10:52] LABS: BASOPHILS ABSOLUTE AUTO 0.03 10^3/uL (0.00-0.50); BASOPHILS PERCENT AUTO 0.7 % (0-1); EOSINOPHILS PERCENT AUTO 2.4 % (0-6); HEMATOCRIT 45.8 % (42.0-52.0); HEMOGLOBIN 16.3 g/dL (14.0-18.0); LYMPHOCYTES ABSOLUTE AUTO 1.48 10^3/uL (0.60-5.00); LYMPHOCYTES PERCENT AUTO 35.9 % (24-44); MEAN CORPUSCULAR HEMOGLOBIN 32.3 pg (27.0-32.0); MEAN CORPUSCULAR HGB CONC 35.6 g/dL (32.0-36.0); MEAN CORPUSCULAR VOLUME 90.9 fL (83.0-97.0); MONOCYTES ABSOLUTE AUTO 0.35 10^3/uL (0.00-1.50); MONOCYTES PERCENT AUTO 8.5 % (0-10); NEUTROPHILS ABSOLUTE AUTO 2.16 x10^3/uL (1.80-8.00); NEUTROPHILS PERCENT AUTO 52.5 % (41-71); PLATELET COUNT,PLT 217 10^3/uL (150-400); RED BLOOD CELL COUNT 5.04 x10^6/uL (4.50-6.00); WHITE BLOOD CELL COUNT,WBC 4.1 10^3/uL (4.0-11.0)
[2022-12-10 11:03] VITALS: BP 192/118; PULSE 82
[2022-12-10 11:17] LABS: CHOLESTEROL HDL 47 mg/dL (60-90); CHOLESTEROL LDL CALCULATED 58 mg/dL (0-99); CHOLESTEROL TOTAL 122 mg/dL (0-199); TRIGLYCERIDES 84 mg/dL (30-150)
== END 2022-12-10 11:00 | disposition home or self-care (01) ==
LOC: CC.ED 09:45
DX: K21.9 Gastro-esophageal reflux disease without esophagitis (principal); E78.5 Hyperlipidemia, unspecified; I10 Essential (primary) hypertension; R10.9 Unspecified abdominal pain; Z88.0 Allergy status to penicillin; Z88.1 Allergy status to other antibiotic agents; Z79.899 Other long term (current) drug therapy
CPT/HCPCS: 36415; 74177; 80061; 85025; 99283; 99284; J3490; Q9967

== ENCOUNTER → 2022-12-26 | Day surgery (SDC) | payer MEDICARE, BC ==
[~2022-12-26] MED LIST changes: -Bacitracin Oint 28.35 GM Tube ONE; +Ketamine 200 MG/20 ML MDV ONE; +Lactated Ringers 1,000 ML IV SCH; +Lidocaine 2% 20 ML MDV ONE; +Propofol 200 MG/20 ML SDV ONE; +fentaNYL 50 MCG/ML SDV ONE
[2022-12-26 13:15] VITALS: BP 153/99; PULSE 76
== END ==
LOC: CC.SDS 09:03
PROVIDERS: ATTEND Family Medicine
DX: K29.50 Unspecified chronic gastritis without bleeding (principal); K31.89 Other diseases of stomach and duodenum; K31.7 Polyp of stomach and duodenum; K21.9 Gastro-esophageal reflux disease without esophagitis; E66.9 Obesity, unspecified; M46.92 Unspecified inflammatory spondylopathy, cervical region; Z88.0 Allergy status to penicillin; Z88.1 Allergy status to other antibiotic agents; Z68.27 Body mass index [BMI] 27.0-27.9, adult; Z79.899 Other long term (current) drug therapy
CPT/HCPCS: 00731; 87081; 99100; J2704; J3010; J3490

== ENCOUNTER 2023-06-26 09:01 | Day surgery (SDC) | payer MEDICARE, BC ==
[2023-06-26] MEDS: Lactated Ringers 1,000 ML IV SCH (09:19)
[2023-06-26] MEDS ORDERED: fentaNYL 50 MCG/ML SDV ONE (10:13)
[2023-06-26] MEDS ORDERED: Propofol 200 MG/20 ML SDV ONE (10:13)
[2023-06-26 11:25] VITALS: BP 137/80; PULSE 84
== END 2023-06-26 11:40 | disposition home or self-care (01) ==
LOC: CC.SDS 09:01
PROVIDERS: ATTEND Family Medicine
DX: K59.00 Constipation, unspecified (principal); K57.30 Diverticulosis of large intestine without perforation or abscess without bleeding; R19.4 Change in bowel habit; Z88.0 Allergy status to penicillin; Z88.1 Allergy status to other antibiotic agents; Z79.899 Other long term (current) drug therapy
CPT/HCPCS: J2704; J3010; J7120

== ENCOUNTER 2023-10-03 12:36 | Emergency (ER) | payer MEDICARE, BC ==
[2023-10-03 12:59] VITALS: BP 129/84; PULSE 88
[2023-10-03] MEDS: Take Home: Doxycycline 100 MG Cap, 4 Cap Pack PO ONE (13:32)
[2023-10-03] MEDS: Take Home: predniSONE 20 MG, 2 Tab Pack PO ONE (13:32)
== END 2023-10-03 13:38 | disposition home or self-care (01) ==
LOC: CC.ED 12:36
DX: J01.10 Acute frontal sinusitis, unspecified (principal); I10 Essential (primary) hypertension; K21.9 Gastro-esophageal reflux disease without esophagitis; Z90.49 Acquired absence of other specified parts of digestive tract; Z79.899 Other long term (current) drug therapy; Z88.0 Allergy status to penicillin; Z88.8 Allergy status to other drugs, medicaments and biological substances
CPT/HCPCS: 99283; A9270-GY; J7512